=== PATIENT | male | born 2005 | race Two or more races ===

== ENCOUNTER 2023-09-26 22:25 | Emergency (ER) | payer SELFPAY ==
[~2023-09-26] VITALS: Ht 180.3 cm; Wt 100.0 kg
[2023-09-26] MEDS ORDERED: NEOMYCIN/BACITRACIN/POLYMYXIN B OINTMENT PACKET TP ONE (23:00)
[2023-09-26] MEDS ORDERED: PERTUSS(ACELL),DIPH,TET VAC/PF 0.5 ML SYRINGE IM. ONE (23:00)
[2023-09-26 23:23] VITALS: BP 139/80; PULSE 88; RESP 18; TEMP 98
[2023-09-26] MEDS ORDERED: CEPH-558 PO (23:39)
[2023-09-26] MEDS ORDERED: IBUP-1492 PO (23:39)
[2023-09-26] MEDS ORDERED: IBUPROFEN 600 MG TABLET PO ONE (23:45)
== END 2023-09-27 02:44 | disposition home or self-care (01) ==
LOC: EMS 22:25
DX: S61.213A Laceration without foreign body of left middle finger without damage to nail, initial encounter (principal); F17.210 Nicotine dependence, cigarettes, uncomplicated; F12.90 Cannabis use, unspecified, uncomplicated; X58.XXXA Exposure to other specified factors, initial encounter; Y93.89 Activity, other specified; Y92.89 Other specified places as the place of occurrence of the external cause; Y99.8 Other external cause status
CPT/HCPCS: 12001; 90715; 99283